=== PATIENT | female | born 1990 | race Two or more races ===

== ENCOUNTER 2017-06-26 17:30 | Emergency (ER) | payer OTHER, BC ==
[~2017-06-26] VITALS: Ht 154.9 cm; Wt 90.7 kg
[~2017-06-26 17:30] MED LIST: DOCU-109 PO; Hydrocodone/Acetaminophen PO
[2017-06-26] MEDS ORDERED: HYDROcodone/APAP 5/325MG 1 TAB TABLET PO ONE (19:00)
[2017-06-26] MEDS ORDERED: CYCLOBENZAPRINE 10 MG TABLET. PO ONE (19:00)
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
[2017-06-26] MEDS ORDERED: CYCL10TA2 PO (20:31)
[2017-06-26] MEDS ORDERED: NAPR500T8 PO (20:31)
[2017-06-26] MEDS ORDERED: HYDR-971 PO (20:31)
[2017-06-26 20:42] VITALS: BP 137/93
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
== END 2017-06-26 20:43 | disposition home or self-care (01) ==
LOC: ER 17:30
DX: S16.1XXA Strain of muscle, fascia and tendon at neck level, initial encounter (principal); S29.012A Strain of muscle and tendon of back wall of thorax, initial encounter; S90.32XA Contusion of left foot, initial encounter; M25.512 Pain in left shoulder; M25.552 Pain in left hip; R07.89 Other chest pain; F31.9 Bipolar disorder, unspecified; F41.9 Anxiety disorder, unspecified; V43.52XA Car driver injured in collision with other type car in traffic accident, initial encounter; Y93.I9 Activity, other involving external motion; Y92.410 Unspecified street and highway as the place of occurrence of the external cause; Y99.8 Other external cause status
CPT/HCPCS: 71020; 72125; 72128; 73030; 73502; 73630; 81025; 99284-25

== ENCOUNTER 2018-11-09 07:16 | Emergency (ER) | payer BC, OTHER ==
[~2018-11-09] VITALS: Ht 154.9 cm; Wt 86.2 kg
[~2018-11-09 07:16] MED LIST changes: +CYCL10TA2 PO; +HYDR-3164 PO; +NAPR500T8 PO
[2018-11-09 07:47] VITALS: BP 196/104
--- NOTE | 2018-11-09 08:09 | PHYS DOC ---
Past Medical History Past Medical History: No Pertinent History Additional Past Medical Histor: PCOS Past Surgical History: Cholecystectomy, Tonsillectomy, Other Additional Past Surgical Histo: D&C, Alcohol Use: Occasionally Drug Use: None Adult General Chief Complaint Chief Complaint: COUGH HPI HPI 28-year-old female presents with a cough. She states that her daughter has and diagnosed with the flu. Today she has a subjective fever and some body aches. She also has had some nasal congestion. She is eating and drinking voiding and stooling normally she did not have a flu shot. Review of Systems Review of Systems Constitutional: Per history of present illness[] Eyes: Denies change in visual acuity, redness, or eye pain [] HENT: Denies nasal congestion or sore throat [] Respiratory: Denies cough or shortness of breath [] Cardiovascular: No additional information not addressed in HPI [] GI: Denies abdominal pain, nausea, vomiting, bloody stools or diarrhea [] : Denies dysuria or hematuria [] Musculoskeletal: Denies back pain or joint pain [] Integument: Denies rash or skin lesions [] Neurologic: Denies headache, focal weakness or sensory changes [] Endocrine: Denies polyuria or polydipsia [] All other systems were reviewed and found to be within normal limits, except as documented in this note. Allergies Allergies Allergies Coded Allergies Type Severity Reaction Last Updated Verified No Known Drug Allergies 04/07/15 No Physical Exam Physical Exam Constitutional: Well developed, well nourished, no acute distress, non-toxic appearance. [] HENT: Normocephalic, atraumatic, bilateral external ears normal, oropharynx moist, no oral exudates, nose normal. [] Eyes: PERRLA, EOMI, conjunctiva normal, no discharge. [] Neck: Normal range of motion, no tenderness, supple, no stridor. [] Cardiovascular:Heart rate regular rhythm, no murmur [] Lungs & Thorax: Bilateral breath sounds clear to auscultation [] Abdomen: Bowel sounds normal, soft, no tenderness, no masses, no pulsatile masses. [] Skin: Warm, dry, no erythema, no rash. [] Back: No tenderness, no CVA tenderness. [] Extremities: No tenderness, no cyanosis, no clubbing, ROM intact, no edema. [] Neurologic: Alert and oriented X 3, normal motor function, normal sensory function, no focal deficits noted. [] Psychologic: Affect normal, judgement normal, mood normal. [] Current Patient Data Vital Signs Vital Signs Date Time Temp Pulse Resp B/P (MAP) Pulse Ox O2 Delivery O2 Flow Rate FiO2 11/09/18 07:47 98.4 71 20 196/104 (134) 98 Room Air 98.4 EKG EKG [] Radiology/Procedures Radiology/Procedures [] Course & Med Decision Making Course & Med Decision Making Pertinent Labs and Imaging studies reviewed. (See chart for details) [ED course: Evaluation reveals a 28-year-old female in no significant distress. I told her she likely has a viral upper respiratory infection. If she has fever she's can be unable to work for a couple of days. I'll provide her with a work note and get her 2 days off work.] Dragon Disclaimer Dragon Disclaimer This electronic medical record was generated, in whole or in part, using a voice recognition dictation system. Departure Departure Impression: Primary Impression: Viral URI with cough Disposition: 01 HOME, SELF-CARE Condition: STABLE Referrals: NO PCP (PCP) Patient Instructions: Form - Excuse from Work, School, or Physical Activity, Viral Syndrome Additional Instructions: Return to the emergency department with any new or concerning symptoms ZACHARY PATEL DO Nov 09, 2018 08:09
== END 2018-11-09 08:16 | disposition home or self-care (01) ==
LOC: ER 07:16
DX: J06.9 Acute upper respiratory infection, unspecified (principal); B97.89 Other viral agents as the cause of diseases classified elsewhere
CPT/HCPCS: 99281; 99283